=== PATIENT | male | born 2005 | race Asian ===

== ENCOUNTER 2024-06-27 16:58 | Emergency (ER) | payer BC, SELFPAY ==
[2024-06-27 17:29] VITALS: BP 136/90; PULSE 90; RESP 16; TEMP 37.3; O2SAT 98; BMI 18.7
--- NOTE | 2024-06-27 18:21 | ED_ITS ---
HPI - General Adult General Date Seen: 06/27/24 Chief complaint: Allergic Reaction Stated complaint: Withdrawal symptoms from previous meds Time Seen by Provider: 06/27/24 18:06 History of Present Illness HPI narrative: Patient is a 19-year-old [employer] student, male to female transgender, here with side effects related to stopping mirtazapine. She says that she stop the drug on advice of her regular doctor a few days ago and since then has had sensory problems, feels like things are very loud and bright, has had difficulty sleeping. Denies an increase in depression or anxiety, denies any suicidality or thoughts of self-harm. She apparently is supposed to start taking trazodone for sleep but does not have a prescription yet, thinks it might arrive tomorrow. She has an appointment on Friday with a doctor through [employer], and has an appointment with psychiatrist in a few weeks. Originally from [place], says that family is supportive and aware of what is going on. Related Data Home Medications ?Medication ?Instructions ?Recorded ?Confirmed aripiprazole 2 mg tablet (Abilify) 2 mg PO DAILY 06/27/24 06/27/24 estridil 8 mg PO BID 06/27/24 06/27/24 progesterone micronized 200 mg PO DAILY 06/27/24 06/27/24 spirolactone 100 mg PO BID 06/27/24 06/27/24 trazodone 50 mg tablet 50 mg PO QHS PRN 06/27/24 06/27/24 Allergies Allergy/AdvReac Type Severity Reaction Status Date / Time Milk Containing Products Allergy Mild NVD Verified 06/27/24 17:41 (Dairy) Exam Narrative: Exam Narrative: Vital signs reviewed In general, alert, well groomed college student Head: Normocephalic, atraumatic. Eyes: Pupils are equal and reactive. Heart: Regular rate and rhythm. Lungs: Clear. Neurologic: She is alert, conversant, moves all extremities equally. Affect: Flat, minimal eye contact. Const: Vital Signs, click to edit/add: Vital Signs - 24 hr 06/27/24 17:29 Temperature 99.2 F Pulse Rate [Pulse Oximeter] 90 Respiratory Rate 16 Blood Pressure [Ri ght Upper Arm] 136/90 H Pulse Oximetry 98 Oxygen Delivery Me thod Room Air Course Course ED Course: Patient presents with symptoms of withdrawal from her tabs a Pean. Reviewed with her that while and pleasant these symptoms are not dangerous and will resolve with time. Not aware of anything specifically that we can use to help, brought up the possibility of a taper but she is not interested in that. Sounds like she has good outpatient support. She does feel overwhelmed with school and thinks that would be helpful to have a note to have a little time off, so that will be provided. I am giving a dose of trazodone here so that maybe she can go home and get some sleep. She will start taking that tomorrow as planned. Outpatient follow-up as outlined in the HPI, return any time for significant worsening. At this time, no indication to suggest and need for inpatient treatment. Vital Signs Vital signs: Initial Vital Signs Temperature 99.2 F 06/27/24 17:29 Temperature Source Temporal Artery Scan 06/27/24 17:29 Pulse Rate 90 06/27/24 17:29 Respiratory Rate 16 06/27/24 17:29 Blood Pressure 136/90 H 06/27/24 17:29 Blood Pressure Mean 105 06/27/24 17:29 Pulse Oximetry 98 06/27/24 17:29 Oxygen Delivery Method Room Air 06/27/24 17:29 Vital Signs Temperature 99.2 F 06/27/24 17:29 Pulse Rate 90 06/27/24 17:29 Respiratory Rate 16 06/27/24 17:29 Blood Pressure 136/90 H 06/27/24 17:29 Pulse Oximetry 98 06/27/24 17:29 Oxygen Delivery Method Room Air 06/27/24 17:29 Temperature 99.2 F 06/27/24 17:29 Pulse Rate 90 06/27/24 17:29 Respiratory Rate 16 06/27/24 17:29 Blood Pressure 136/90 H 06/27/24 17:29 Pulse Oximetry 98 06/27/24 17:29 Oxygen Delivery Method Room Air 06/27/24 17:29 Medications Administered Medications: Discontinued Medications Generic Name Dose Route Start Last Admin Trade Name Freq PRN Reason Stop Dose Admin Trazodone HCl 50 mg 06/27/24 18:21 06/27/24 18:48 Trazodone Hcl 50 Mg Tablet PO 06/27/24 18:22 50 mg ONCE ONE Administration Discharge Plan Discharge Clinical Impression: Medication withdrawal Patient Disposition: Home, Self-Care Condition: Stable Additional Instructions: You should feel better with time, but I can not predict exactly how long this will take. Use the trazodone as prescribed by your regular doctor. Make sure to keep follow-up appointments. Return to the ER at any time if you do not feel safe at home. Prescriptions: No Action estridil 8 mg PO BID Patient Comments: 2 tab (4mg) progesterone micronized 200 mg PO DAILY spirolactone 100 mg PO BID aripiprazole [Abilify] 2 mg tablet 2 mg PO DAILY trazodone 50 mg tablet 50 mg PO QHS PRN Stand Alone Forms: Tangled Info Instructions
[2024-06-27] MEDS: TRAZODONE HCL 50 MG TABLET PO (18:48)
--- OUTSIDE RECORDS SUMMARY | 2024-06-27 19:01 | XMS_ITS | Clinical Summary ---
[facility] Organization [facility] Address [address] [place] [address] Care Team Providers Care Circuit Judge Name Role Phone Unavailable Primary Care Provider Unavailabl e Source Comments You are receiving this document as you are listed as the primary care provider,follow-up provider, or the patient has been referred to you for consultation.This is in compliance with the Medicare and[facility] EHR Incentive Program,which states Providers who transition their patient to another setting of careor provider of care or refers their patient to another provider of care shouldprovide summary care record for each transition of care or referral. [facility] Allergies No known active allergies Medications ALBUTEROL SULFATE IN Inhale 1-2 Puffs every 6 hours as needed. Active ARIPiprazole (ABILIFY) 2 MG tabletIndicatio ns:Anxiety and depression (HRC) Take 1 Tablet (2 mg) by mouth daily. 90 Tablet 3 4 Active estradiol 2 MG tabletIndicatio ns:Gender dysphoria,Hormo ne replacement therapy (HRT) Take 1 Tablet (2 mg) by mouth daily. 90 Tablet 3 4 Active progesterone (PROMETRIUM) 200 MG capsuleIndicati ons:Gender dysphoria,Hormo ne replacement therapy (HRT) Take 1 Capsule (200 mg) by mouth daily. 90 Capsule 3 4 Active spironolactone (ALDACTONE) 100 MG tabletIndicatio ns:Gender dysphoria,Hormo ne replacement therapy (HRT) Take 1 Tablet (100 mg) by mouth daily. 90 Tablet 3 4 Active traZODone (DESYREL) 50 MG tabletIndicatio ns:Anxiety (HRC),Sleep trouble,Depress ion, unspecified depression type Take 1 Tablet (50 mg) by mouth daily at bedtime. 90 Tablet 3 5 Active mirtazapine (REMERON) 30 MG tabletIndicatio ns:Anxiety and depression (HRC),Insomnia, unspecified type Take 1 Tablet (30 mg) by mouth daily at bedtime. 90 Tablet 3 4 025 Discontinued Active Problems Problem Noted Date Diagnosed Date Anxiety 01/14/2024 Depression, unspecified 01/14/2024 History of stress fracture 09/03/2023 Overview (09/03/2023): Left cuboid stress fracture July 2019, visualized on MRI Gender dysphoria 08/05/2022 Vitamin D deficiency 06/12/2022 Encounters Date Type Department Care Team Description 06/24/2024 10:00 AM TAPE SEWER Telemedicine [address] [address] Nehal Chua PA-C Anxiety (HRC) (Primary Dx); Sleep trouble; Depression, unspecified depression type 06/14/2024 3:35 PM TAPE SEWER E-Visit [address] [address] Nehal Chua PA-C Chief Comp: Medication Questions 04/07/2024 E-Visit Neurology at [address] [address] Mychart, Generic Provider 04/06/2024 1:15 PM TAPE SEWER Procedure Visit [facility] EEG/EMG [address] [place] [id number] from Last 3 Months Immunizations Immunization Administration Dates Next Due 9vHPV (Gardasil 9) 04/11/2017,09/27/2016 DTaP 01/13/2010, 6,2004,2004,2004 [id number] 04/24/2009 HepA, Unspecified Formulation 06/29/2007, 007 HepB, Unspecified Formulation 01/23/2005, 005,2004 Hib (PedvaxHIB) 10/31/2005, 5,2004,2004 IPV (Polio) 07/13/2009, 5,2004,2004 Influenza IIV4 (Quadrivalent ) 0.5mL (21365) 02/19/2022,03/26/2021,02/16/2020,2018,03/06/2018,04/11/2017 Influenza, Unspecified Formulation 04/11/2016, MCV4 (Menactra) 12/07/2015 MCV4 Menveo 2m.+ (two vial) 03/26/2021 MMR 07/06/2008,10/31/2005 Pfizer Monovalent 12+ Purple Top 2021,05/0 10/2020,08/24/2020 Pneumococcal 7, PED 05/01/2005, 5,2004,2004 Tdap 12/07/2015 Varicella 07/13/2009,10/31/2005 Family History Medical History Relation Name Comments Asthma Father Diabetes, Type II Paternal Grandfather Relation Name Status Comments Father Paternal Grandfather Social History Tobacco Use Types Packs/Day Years Used Date Smoking Tobacco: Never Smokeless Tobacco: Never Tobacco Cessation:Counseling Given: Not Answered Alcohol Use Standard Drinks/Week Comments Never 0 (1 standard drink = 0.6 oz pur e alcohol) PHQ-2 Answer Date Recorded PHQ-2 Score 3 01/14/2024 Financial Resource Strain Answer Date R ecorded Is it hard for you to pay fo r the very basics like food, housing, medical care or heating? No 08/30/2023 Food Insecurity Answer Date Recorded Does your food run out before you have the money to buy more? No 08/30/2023 Transportation Needs Answer Date Record ed Does a lack of transportatio n keep you from your medical appointments or from getting your medications? No 024 Comments Unknown Sex and Gender Information Value Date Recorded Sex Assigned at Not on file Legal Sex Female 5:44 PM CDT Gender Identity Not on file Sexual Orientation Not on file Last Filed Vital Signs Vital Sign Reading Time Taken Comments Blood Pressure 119/62 02/19/2024 2:32 PM CDT Pulse 69 02/19/2024 2:32 PM CDT Temperature - - Respiratory Rate - - Oxygen Saturation - - Inhaled Oxygen Concentration - - Weight 59.9 kg (132 lb) 02/19/2024 2:32 PM CDT weight with shoes Height 178 cm (5' 10.08) 09/03/2023 2: 35 PM CDT Body Mass Index 18.9 09/03/2023 2:35 PM CDT Plan of Treatment Upcoming Encounters Date Type Department Care Team (Late st Contact Info) Description 07/30/2024 1:00 PM CDT Telemedicine [facility] Psychiatry [address] [place] [address] Nova Schultz MD [address] [place], [place] [id number] Health Maintenance Due Date Last Done Comments Chlamydia 2004 Hep C Screening (Preventive Services) 2004 MenB Immunization Discussion 2004 HIV Screening (Preventive Services) 2020 COVID-19 Vaccine ( season) 2024 2021, 09/14/2020, 08/24/2020 Influenza (#1) 2024 02/19/2022, 03/12, 02/16/2020, Additional history exists Adult Preventive Visit 09/02/2024 09/03/2023 DTaP/Tdap/Td (7 - Tdap) 12/06/2025 12/07/19 16, 01/13/2010, 10/31/2005, Additional history exists Zoster/Shingles (1 of 2) 2054 HepB Completed 01/23/2005, 06/13, 2004 Pneumococcal Aged Out 05/01/2005, 08/11, 2004, Additional history exists No longer eligible based on patient's age to complete this topic Hib Completed 10/31/2005, 12/2004, 2004, Additional history exists HepA Completed 06/29/2007, 05/15/2006 IPV (Polio) Completed 07/13/2009, 04/12, 2004, Additional history exists Varicella Completed 07/13/2009, 10/31/2005 HPV Vaccine Completed 04/11/2017, 09/27/2016 MCV4 Completed 03/26/2021, 12/07/2015 Procedures Procedure Name Priority Date/Time Associated Diagnosis Comments EEG REPORT Routine 04/06/2024 1:15 PM TAPE SEWER Altered awareness, transient from Last 3 Months Results * EEG REPORT [[id number]] (04/06/2024 1:15 PM TAPE SEWER) Narrative EXTERNAL RESULTS - 04/06/2024 1:15 PM TAPE SEWER Rebecca Keith MD 04/06/2024 9:37 PM Electroencephalogram Procedure Note Indications: Transient altered awareness Ordering Physician: Triny Cosby APRN EEG#: [id number] Date: 04/06/2024 Start time: 13:12 End time: 14:21 Medications Outpatient Medications Prior to Visit Medication Sig Dispense Refill ALBUTEROL SULFATE IN Inhale 1-2 Puffs every 6 hours as needed. ARIPiprazole (ABILIFY) 2 MG tablet Take 1 Tablet (2 mg) by mouth daily. 90 Tablet 3 estradiol 2 MG tablet Take 1 Tablet (2 mg) by mouth daily. 90 Tablet 3 mirtazapine (REMERON) 30 MG tablet Take 1 Tablet (30 mg) by mouth daily at bedtime. 90 Tablet 3 progesterone (PROMETRIUM) 200 MG capsule Take 1 Capsule (200 mg) by mouth daily. 90 Capsule 3 spironolactone (ALDACTONE) 100 MG tablet Take 1 Tablet (100 mg) by mouth daily. 90 Tablet 3 No facility-administered medications prior to visit. Technical Description This is a > 1 hour EEG performed using 32-channel digital electroencephalographic recording equipment. International 10-20 electrode placement was used. The record was obtained with the patient awake and asleep. The record is of good technical quality for purposes of interpretation. Activation Procedures: photic stimulation . EEG Description Awake: An organized background was observed. Posterior parietal occipital activity during wakefulness consisted of 10 Hz medium voltage activity, which waxed and waned, and attenuated on eye opening bilaterally. Low voltage beta activity was observed with an anterior > posterior gradient. Sleep: With drowsiness, there was attenuation of the posterior dominant rhythm. As the patient entered into light sleep, vertex waves and symmetrical spindles were noted. K complexes were noted in sleep. Result of Activation Procedures: Hyperventilation: N/A. Photic Stimulation: No photic driving response is noted. Interictal: No interictal epileptiform discharges are recorded. Ictal: No electrographic seizures are recorded. EKG: regular rhythm EEG Interpretation Normal awake and sleep EEG. Rebecca Gar MD us Triny Cosby YARN FINISHER, CARTON MAKER [employer] Final Re sult EXTERNAL RESULTS from Last 3 Months Insurance [facility] OUT OF STATE
--- OUTSIDE RECORDS SUMMARY | 2024-06-27 19:01 | XMS_ITS | Encounter Summary ---
Author Organization [facility] Address [address] [place] [address] Care Team Providers Care Aircraft Sales Representative Name Role Phone Unavailable Primary Care Provider Unavailabl e Reason for Visit * Reason Onset Date Comments Video Visit 06/24/2024 Encounter Details Date Type Department Care Team (Late st Contact Info) Description 06/24/2024 10:00 AM ASPHALT MIXING MACHINE OPERATOR Telemedicine [facility] [address] [place] [address] Nehal Chua PA-C [address] [place], [place] [phone] Anxiety (HRC) (Primary Dx); Sleep trouble; Depression, unspecified depression type Social History Tobacco Use Types Packs/Day Years Used Date Smoking Tobacco: Never Smokeless Tobacco: Never Alcohol Use Standard Drinks/Week Comments Never 0 [...] on file Sexual Orientation Not on file documented as of this encounter Progress Notes * Nehal Chua PA-C - 06/24/2024 10:00 AM CST Subjective: Today's visit with Antonia was conducted via telehealth (video) as it is the patient's preference and it is appropriate for the treatment being provided CC: discuss mirtazepine side effects Since being in college she will often not have a consistent bedtime. She feels like mirtazepine needs to be taken at the same time every night but does not always go to bed at a consistent time, thishas led to missed doses. When missing doses she will feel less mental clarity, trouble focusing in class, easily overwhelmed to sensory stimuli, increase anxiety. In general less motivation to do things but does report when not taking mirtazepine she has been going out more with friends. Does not sleep well if does not take meds. If misses meds, will feel 'unstable' within a few days of missing meds Mirtazepine was started to help with sleep. Taking abilify, progesterone, spironolactone and estradiol daily without forgetting. Has appt with Psychiatry, Dr. Schultz in July. Objective: There were no vitals taken for this visit. Pt appears well, no apparent distress noted, talks in full comfortable sentences. Assessment/Plan: Antonia was seen today for video visit. Diagnoses and all orders for this visit: Anxiety (HRC) Sleep trouble Depression, unspecified depression type - traZODone (DESYREL) 50 MG tablet; Take 1 Tablet (50 mg) by mouth daily at bedtime. Discussed treatment options, risks and benefits. Antonia would like to discontinue mirtazepine and try something else. After discussing options, she will trial Trazodone 50 mg qhs Continue other meds unchanged Will follow up with as scheduled on 07/30/24 and with me sooner if needed. Nehal Chua PA-C ALT MIXING MACHINE OPERATOR documented in this encounter Plan of Treatment Upcoming Encounters Date Type Department Care Team (Late st Contact Info) Description 07/30/2024 1:00 PM CDT Telemedicine [facility] Psychiatry [address] [place] [address] Nova Schultz MD [address] [facility] [address] documented as of this encounter Visit Diagnoses Diagnosis Anxiety (HRC)- Primary Anxiety state, unspecified Sleep trouble Sleep disturbance, unspecified Depression, unspecified depression type documented in this encounter
--- OUTSIDE RECORDS SUMMARY | 2024-06-27 19:01 | XMS_ITS | Encounter Summary ---
Author Organization [facility] Address [address] [place] [address] Care Team Providers Care Wheelman Name Role Phone Unavailable Primary Care Provider Unavailabl e Reason for Visit * Reason Comments Medication Questions Entered automatical ly based on patient selection in [place]. Encounter Details Date Type Department Care Team (Late st Contact Info) Description 06/14/2024 3:35 PM DESIGN PROJECT MANAGER E-Visit [facility] [address] [place] [address] Nehal Chau PA-C [address] [place] [address] Chief Comp: Medication Questions Social History Tobacco Use Types Packs/Day Years [...] on file documented as of this encounter Nursing Notes * Nissa Knox 06/17/2024 8:04 AM CST CA called and reached patient. Informed of provider message and scheduled 40- minute VV on 06/24/24. Patient declined in-person visit. Nissa Knox 06/17/2024, 8:07 AM GN PROJECT MANAGER * Eliana Cormier - 06/15/2024 8:32 AM CST X1 TCB to schedule an in office visit with Nehal, can use same day. Must be 40 mins Eliana Cormier 06/15/2024, 8:33 AM GN PROJECT MANAGER * Nehal Chua PA-C - 06/15/2024 8:28 AM CST Antonia should be seen in person. Ok to use same days but needs to be 40 min. Thank you. Nehal Chua PA-C 06/15/2024, 8:28 AM GN PROJECT MANAGER documented in this encounter Plan of Treatment Upcoming Encounters Date Type Department Care Team (Late st Contact Info) Description 07/30/2024 1:00 PM CDT Telemedicine [facility] Psychiatry [address] [place], [place] [phone] Nova Schultz MD [address] [place] [address] documented as of this encounter Visit Diagnoses Not on filedocumented in this encounter
[2024-06-27 19:15] VITALS: BP 125/80; PULSE 85; RESP 16; TEMP 37.3; O2SAT 98
== END 2024-06-27 19:15 | disposition home or self-care (01) ==
LOC: ED 18:59
PROVIDERS: Emergency Provider Emergency Medicine
DX: F19.939 Other psychoactive substance use, unspecified with withdrawal, unspecified (principal)
CPT/HCPCS: 99283; A9270

== ENCOUNTER 2024-08-25 23:37 | Emergency (ER) | payer BC, SELFPAY ==
--- OUTSIDE RECORDS SUMMARY | 2024-08-25 23:38 | XMS_ITS | Clinical Summary ---
Author Organization [facility] Address [address], [place] [address] Care Team Providers Care Landscape Contractor Name Role Phone Linda Leonardo MD Primary Care Provider [phone] Source Comments You are receiving this document as you are listed as the primary care provider,follow-up provider, or the patient has been referred to you for consultation.This is in compliance with the Medicare and[facility] EHR Incentive Program,which states Providers who transition their patient to another setting of careor provider of care or refers their patient to another provider of care shouldprovide summary care record for each transition of care or referral. [facility] Allerg[facility] No known active allergies Medications ALBUTEROL SULFATE IN Inhale 1-2 Puffs every 6 hours as needed. Active estradiol 2 MG tabletIndicatio ns:Gender dysphoria,Hormo ne replacement therapy (HRT) Take 1 Tablet (2 mg) by mouth daily. 90 Tablet 3 09/03/19 24 Active progesterone (PROMETRIUM) 200 MG capsuleIndicati ons:Gender dysphoria,Hormo ne replacement therapy (HRT) Take 1 Capsule (200 mg) by mouth daily. 90 Capsule 09/03/19 24 Active spironolactone (ALDACTONE) 100 MG tabletIndicatio ns:Gender dysphoria,Hormo ne replacement therapy (HRT) Take 1 Tablet (100 mg) by mouth daily. 90 Tablet 09/03/19 24 Active QUEtiapine (SEROQUEL) 25 MG tablet Take 1-2 Tablets (25-50 mg) by mouth at bedtime as needed. 60 Tablet 08/26/19 25 Active divalproex (DEPAKOTE ER) 500 MG 24 hour release tablet Take 2 Tablets (1,000 mg) by mouth daily at bedtime. 60 Tablet 08/26/19 25 Active escitalopram (LEXAPRO) 10 MG tablet 5 mg daily then inc to 10 mg daily after a week 30 Tablet 1 08/26/19 25 Active traZODone (DESYREL) 50 MG tabletIndicatio ns:Anxiety (HRC),Sleep trouble,Depress ion, unspecified depression type Take 2 Tablets (100 mg) by mouth daily at bedtime. 180 Tablet 3 07/08/19 25 025 Discontinued(In effective for condition) QUEtiapine (SEROQUEL) 25 MG tablet Take 1-2 Tablets (25-50 mg) by mouth at bedtime as needed (sleep). 60 Tablet 07/24/19 25 025 Discontinued ARIPiprazole (ABILIFY) 2 MG tabletIndicatio ns:Anxiety and depression (HRC) Take 0.5 Tablets (1 mg) by mouth daily. 07/24/19 25 025 Discontinued(In effective for condition) divalproex (DEPAKOTE ER) 500 MG 24 hour release tablet 1 tab HS for 1 wk then 1 tab BID thereafter. Take all at night if sedating. 60 Tablet 1 07/27/19 25 025 Discontinued QUEtiapine (SEROQUEL) 25 MG tablet TAKE 1 TO 2 TABLETS AT BEDTIME NEEDED FOR SLEEP 60 Tablet 08/21/19 25 025 Discontinued(*M ed change OR same med OR reorder, new dose/directions ) Active Problems Problem Noted Date Diagnosed Date Anxiety 01/14/2024 Depression, unspecified 01/14/2024 History of stress fracture 09/03/2023 Overview (09/03/2023): Left cuboid stress fracture July 2019, visualized on MRI Gender dysphoria 08/05/2022 Vitamin D deficiency 06/12/2022 Encounters Date Type Department Care Team Description 08/25/2024 10:30 AM CDT Telemedicine [facility] Psychiatry [address] [place] [address] Nova Schultz MD Bipolar II disorder (HRC) (Primary Dx); Anxiety (HRC); Gender dysphoria; Vitamin D deficiency (HRC) 08/20/2024 Refill [facility] Psychiatry [address] [place] [address] Nova Schultz MD Refill 08/16/2024 Refill [facility] Psychiatry [address] [place] [address] Nova Schultz MD Refill (ARIPiprazole (ABILIFY) 2 MG tablet) 08/10/2024 10:25 AM CDT E-Visit [facility] Psychiatry [address] [place] [address] Nova Schultz MD Chief Comp: Medication Questions 07/24/2024 2:35 PM CDT E-Visit [facility] Psychiatry [facility] [place] [address] Nova Schultz MD Chief Comp: Follow-up, NOS 07/23/2024 11:00 AM CDT Telemedicine [facility] Psychiatry [facility] [place] [address] Nova Schultz MD Bipolar II disorder (HRC) (Primary Dx); Depression, unspecified depression type; Anxiety (HRC); Gender dysphoria; Vitamin D deficiency (HRC); Encounter for long-term current use of medication; Anxiety and depression (HRC) 07/08/2024 11:00 AM LANDSCAPE NURSERYMAN E-Visit [address] [address] Nehal Chua PA-C Dx: Anxiety (HRC) 07/07/2024 5:20 PM LANDSCAPE NURSERYMAN E-Visit [address] [address] Linda Leonardo MD Dx: Anxiety and depression (HRC) (Primary Dx) 06/29/2024 2:30 PM LANDSCAPE NURSERYMAN Telemedicine [address] [address] Nehal Chua PA-C Anxiety (HRC) (Primary Dx); Depression, unspecified depression type; Sleep trouble; Medication side effects 06/28/2024 10:50 AM LANDSCAPE NURSERYMAN E-Visit [address] [address] Nehal Chua PA-C Chief Comp: Follow-up, NOS 06/24/2024 10:00 AM LANDSCAPE NURSERYMAN Telemedicine [address] [address] Nehal Chua PA-C Anxiety (HRC) (Primary Dx); Sleep trouble; Depression, unspecified depression type 06/14/2024 3:35 PM LANDSCAPE NURSERYMAN E-Visit [address] [address] Nehal Chua PA-C Chief Comp: Medication Questions from Last 3 Months Immunizations Immunization Administration Dates Next Due 9vHPV (Gardasil 9) 04/11/2017,09/27/2016 DTaP 01/13/2010, 6,2004,2004,2004 [id number] 04/24/2009 HepA, Unspecified Formulation 06/29/2007, 007 HepB, Unspecified Formulation 01/23/2005, 005,2004 Hib (PedvaxHIB) 10/31/2005, 5,2004,2004 IPV (Polio) 07/13/2009, 5,2004,2004 Influenza IIV4 (Quadrivalent ) 0.5mL (77633) 02/19/2022,03/26/2021,02/16/2020,2018,03/06/2018,04/11/2017 Influenza, Unspecified Formulation 04/11/2016, MCV4 (Menactra) [...] alcohol) PHQ-2 Answer Date Recorded PHQ-2 Score 4 07/23/2024 Financial Resource Strain Answer Date R ecorded [...] Care Team (Late st Contact Info) Description 10/07/2024 10:30 AM CDT Telemedicine [facility] Psychiatry [address] [place] [address] Nova Schultz MD [address] [place] [address] Health Maintenance Due Date Last Done Comments Chlamydia 2004 Hep C Screening (Preventive Services) 2004 MenB Immunization Discussion 2004 HIV Screening (Preventive Services) 2020 COVID-19 Vaccine ( season) 2024 2021, 09/14/2020, 08/24/2020 Influenza Vaccine (#1) 2024 , 03/26/2021, 02/16/2020, Additional history exists Adult Preventive Visit 09/02/2024 09/03/2023 DTaP/Tdap/Td Vaccine (7 - Tdap) 12/06/2025 12/07/2015, 01/13/2010, 10/31/2005, Additional history exists Zoster/Shingles Vaccine (1 of 2) 2054 HepB Vaccine Completed 01/23/2005, 06/13, 2004 Pneumococcal Vaccine Aged Out 05/01/2005, 2004, 2004, Additional history exists No longer eligible based on patient's age to complete this topic Hib Vaccine Completed 10/31/2005, 12/2004, 2004, Additional history exists HepA Vaccine Completed 06/29/2007, 05/15/2006 IPV (Polio) Vaccine Completed 07/13/2009, 05/01/2005, 2004, Additional history exists Varicella Vaccine Completed 07/13/2009, 10/31/2005 HPV Vaccine Completed 04/11/2017, 09/27/2016 MCV4 Vaccine Completed 03/26/2021, 12/07/2015 [place] [address] Care Teams Landscape Contractor Relationship Specialty Start Date End Date Linda Leonardo MD [address] [place] [address] PCP - General Family Practice 07/08/24
--- OUTSIDE RECORDS SUMMARY | 2024-08-25 23:38 | XMS_ITS | Encounter Summary ---
Author Organization [facility] Address [address] [address] Care Team Providers Care Regional Manager Name Role Phone Linda Leonardo MD Primary Care Provider [phone] Reason for Visit * Reason Onset Date Comments Refill 08/16/2024 ARIPiprazole (AB ILIFY) 2 MG tablet Encounter Details Date Type Department Care Team (Late st Contact Info) Description 08/16/2024 Refill [facility] Psychiatry [address] [facility] [place], [place] [id number] Nova Schultz MD [address] [place] [address] Refill (ARIPiprazole (ABILIFY) 2 MG tablet) Social History Tobacco Use Types Packs/Day Years [...] as of this encounter Nursing Notes * Nova Schultz MD - 08/16/2024 1:35 PM CDT This medication Abilify is being discontinued. Pt aware. * Mp Menjivarm - 08/16/2024 10:18 AM CDT ARIPiprazole (ABILIFY) 2 MG tablet Medication started: 11/09/2022 Last ordered by NOVA SCHULTZ: 07/23/2024 (24 days ago as No Print/No Fill on 07/23/2024 by NOVA SCHULTZ), Sig: take 0.5 tablets (1 mg) by mouth daily. (unchanged) -> Medication cannot be delegated. -> A qualifying visit was not found within the last 2 years. Last qualifying visit: None (A recent visit (in Family Practice with VJ GALLAGHER) was found) Next scheduled visit: None [facility] Embedded Refills, Reference: [id number], 08/16/2024 10:17:58 AM CDT, Pool: Refill Centralized Services - Primary Care ([id number]) documented in this encounter Plan of Treatment Upcoming Encounters Date Type Department Care Team (Late st Contact Info) Description 10/07/2024 10:30 AM CDT Telemedicine [facility] Psychiatry [address] [facility] [place] [address] Nova Schultz MD [address] [place] [address] documented as of this encounter Visit Diagnoses Diagnosis Anxiety and depression (HRC) Dysthymic disorder documented in this encounter Care Teams Regional Manager Relationship Specialty Start Date End Date Linda Leonardo MD [address] [place] [address] PCP - General Family Practice 07/08/24 documented as of this encounter
--- OUTSIDE RECORDS SUMMARY | 2024-08-25 23:38 | XMS_ITS | Encounter Summary ---
Author Organization [facility] Address [address] [address] Care Team Providers Care Radiotelegraph Operator Servicer Name Role Phone Linda Leonardo MD Primary Care Provider [phone] Encounter Details Date Type Department Care Team (Late Contact Info) Description 08/25/2024 10:30 AM CDT Telemedicine [facility] Psychiatry [address] [facility] [place], [place] [address] Nova Schultz MD [address] [place], [place] [address] Bipolar II disorder (HRC) (Primary Dx); Anxiety (HRC); Gender dysphoria; Vitamin D deficiency (HRC) Social History Tobacco Use Types Packs/Day Years [...] on file documented as of this encounter Plan of Treatment Upcoming Encounters Date Type Department Care Team (Late st Contact Info) Description 10/07/2024 10:30 AM CDT Telemedicine [facility] Psychiatry [address] [place] [address] Nova Schultz MD [address] [address] documented as of this encounter Visit Diagnoses Diagnosis Bipolar II disorder (HRC)- Primary Other bipolar disorders Anxiety (HRC) Anxiety state, unspecified Gender dysphoria Vitamin D deficiency (HRC) Unspecified vitamin D deficiency documented in this encounter Care Teams Radiotelegraph Operator Servicer Relationship Specialty Start Date End Date Linda Leonardo MD [address] [place] [address] PCP - General Family Practice 07/08/24 documented as of this encounter
[2024-08-25 23:39] VITALS: BP 120/86; PULSE 81; RESP 16; TEMP 36.1; O2SAT 98; BMI 18.7
--- OUTSIDE RECORDS SUMMARY | 2024-08-25 23:39 | XMS_ITS | Encounter Summary ---
Author Organization [facility] Address [address] [place] [address] Care Team Providers Care Shotblast Operator Name Role Phone Linda Leonardo MD Primary Care Provider [phone] Reason for Visit * Reason Comments Follow-up, NOS Entered automaticall y based on patient selection in [employer]. Encounter Details Date Type Department Care Team (Late st Contact Info) Description 07/24/2024 2:35 PM CDT E-Visit [facility] Psychiatry [address] [facility] [place], [place] [address] Nova Schultz MD [address] [place] [address] Chief Comp: Follow-up, NOS Social History Tobacco Use Types Packs/Day Years [...] Nursing Notes * Nova Schultz MD - 07/26/2024 7:13 PM CDT I changed the RX. Pls send lab orders to [facility] if they can do it there. Requested Prescriptions Signed Prescriptions Disp Refills divalproex (DEPAKOTE ER) 500 MG 24 hour release tablet 60 Tablet 1 Si tab HS for 1 wk then 1 tab BID thereafter. Take all at night if sedating. Authorizing Provider: NOVA SCHULTZ * Rosita Huerta RN - 07/26/2024 4:11 PM CDT Routed to to advise. * Olive Muse LPN - 07/26/2024 12:06 PM CDT I did it came back no PA needed. If that's the case of insurance not wanting to pay for 2 of the 250 MG vs. 500 MG I will probably need [place] to ask why 2 per day vs. 1 per day on a 24 hour drug. Thoughts? * Rosita Huerta RN - 07/26/2024 12:00 PM CDT Olive, can PA be done? Depakote ER 250 mg is ordered BID, not 500 mg daily. * Poli Smith - 07/26/2024 11:44 AM CDT Medication Change/Question/Concern What is your question or concern? Pt calling regarding the prescription issue with divalproex 250 mg tablets. Pt states she updated her address with the pharmacy and they stated that is not the issuewith dispensing the medication. Pt states that they are trying to dispense the medication as divalproex 500 mg tablets quantity: 30 tablets, instead of what is prescribed. They will need a callback to clarify on this medication order. Name of medication(s): Divalproex 250 mg tablets Is it okay to leave a detailed message on your voicemail? Yes We'd like to make sure we have an updated pharmacy on file. [facility] AT Portal to Registered [place] [phone] * Olive Muse LPN - 07/26/2024 10:52 AM CDT Closed Prior Authorization Portal Close reason: Prior Authorization not required for patient/medication Payer: [employer] arthur Note from payer: Closed Attempted to call pharmacy to inform them of this status and with address listed on patient's chartdoes not match what pharmacy [facility] AT Portal to [facility] [phone] has and we are unable to verify. Antonia will need to contact pharmacy and update them with information that we have on file in order to verifyany information. * Olive Muse LPN - 07/26/2024 9:20 AM CDT PA requested for Quantity Refills Start End divalproex (DEPAKOTE ER) 250 MG 24 hour release tablet 60 Tablet 0 07/23/2024 07/23/2025 Sig: Take 1 Tablet (250 mg) by mouth two times a day. Route: Oral * Rosita Huerta RN - 07/26/2024 8:44 AM CDT Olive, can you look into what pharmacy needs in order to fill depakote pls? Thank you. documented in this encounter Plan of Treatment Upcoming Encounters Date Type Department Care Team (Late st Contact Info) Description 10/07/2024 10:30 AM CDT Telemedicine [facility] Psychiatry [address] [place], [place] [address] Nova Schultz MD [address] [place] [address] documented as of this encounter Visit Diagnoses Not on filedocumented in this encounter Care Teams Shotblast Operator Relationship Specialty Start Date End Date Linda Leonardo MD [address] [place] [address] PCP - General Family Practice 07/08/24 documented as of this encounter
--- OUTSIDE RECORDS SUMMARY | 2024-08-25 23:39 | XMS_ITS | Encounter Summary ---
Author Organization [facility] Address [address], [place] [address] Care Team Providers Care Graphic Technician Name Role Phone Linda Leonardo MD Primary Care Provider [phone] Reason for Visit * Reason Comments Medication Questions Entered automatical ly based on patient selection in [employer]. Encounter Details Date Type Department Care Team (Late Contact Info) Description 08/10/2024 10:25 AM CDT E-Visit [facility] Psychiatry [address], [address] [place], [place] [id number] Nova Schultz MD [address] [place] [address] Chief Comp: Medication Questions Social History Tobacco [...] Encounters Date Type Department Care Team (Late Contact Info) Description 10/07/2024 10:30 AM CDT Telemedicine [facility] Psychiatry [address] [place] [address] Nova Schultz MD [address] [place] [address] documented as of this encounter Visit Diagnoses Not on filedocumented in this encounter Care Teams Graphic Technician Relationship Specialty Start Date End Date Linda Leonardo MD [address] [place] [address] PCP - General Family Practice 07/08/24 documented as of this encounter
--- OUTSIDE RECORDS SUMMARY | 2024-08-25 23:39 | XMS_ITS | Encounter Summary ---
Author Organization [facility] Address [address], [place] [address] Care Team Providers Care Corporate Safety Manager Name Role Phone Linda Leonardo MD Primary Care Provider [phone] Reason for Visit * Reason Comments Refill Encounter Details Date Type Department Care Team (Late st Contact Info) Description 08/20/2024 Refill [facility] Psychiatry [address] [facility] [place], [place] [id number] Nova Schultz MD [address] [place], [place] [id number] Refill Social History Tobacco Use Types Packs/Day Years [...] as of this encounter Nursing Notes * Rosita Huerta RN - 08/20/2024 9:51 AM CDT Refill completed per standing order. documented in this encounter Plan of Treatment Upcoming Encounters Date Type Department Care Team (Late st Contact Info) Description 10/07/2024 10:30 AM CDT Telemedicine [facility] Psychiatry [address] [facility] [address] [facility] [place] [address] Nova Schultz MD [address] [place], [place] [address] documented as of this encounter Visit Diagnoses Not on filedocumented in this encounter Care Teams Corporate Safety Manager Relationship Specialty Start Date End Date Linda Leonardo MD [address] [place] [address] PCP - General Family Practice 07/08/24 documented as of this encounter
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
--- NOTE | 2024-08-26 00:13 | ED.GENADULT ---
HPI - General Adult General Chief complaint: Nausea/Vomiting Stated complaint: vomiting, dehydration Time Seen by Provider: 08/25/24 23:52 Source: patient Mode of arrival: ambulatory Limitations: no limitations History of Present Illness HPI narrative: 19-year-old patient presents to the emergency department with 5 hours of vomiting. No abdominal pain, no fever, no diarrhea. No hematemesis. No trauma or injury. Did not try any interventions prior to coming to ED. Denies use of marijuana. No sick contacts, no pertinent travel. Reports that they have been unable to hold down any substance since the vomiting started. No vomiting observed in triage. No prior similar ED visits. No recent medication adjustments, no history of pancreatitis or significant alcohol use. Past medical history notable for treatment for gender affirming male to female therapy. Reports that home meds are Abilify, Seroquel, estrogen, progesterone and spironolactone therapy, Depakote. No prior abdominal surgeries. ROS notable for the upper GI symptoms only, otherwise denies times 12 systems. Related Data Home Medications ?Medication ?Instructions ?Recorded ?Confirmed aripiprazole 2 mg tablet (Abilify) 2 mg PO DAILY 06/27/24 06/27/24 estridil 8 mg PO BID 06/27/24 06/27/24 progesterone micronized 200 mg PO DAILY 06/27/24 06/27/24 spirolactone 100 mg PO BID 06/27/24 06/27/24 trazodone 50 mg tablet 50 mg PO QHS PRN 06/27/24 06/27/24 Allergies Allergy/AdvReac Type Severity Reaction Status Date / Time Milk Containing Products Allergy Mild NVD Verified 06/27/24 17:41 (Dairy) [facility] Social History Smoking Status: Never smoker Second hand tobacco smoke exposure: No How often do you have a drink containing alcohol: never AUDIT-C Alcohol total score: 0 Non-prescribed substance use: denies use service: No Exam Const: Vital Signs, click to edit/add: Vital Signs - 24 hr 08/25/24 23:39 Temperature 97.0 F L Pulse Rate [Left P ulse Oximeter] 81 Respiratory Rate 16 Blood Pressure [Ri ght Upper Arm] 120/86 Pulse Oximetry 98 Oxygen Delivery Me thod Room Air Documenting provider has reviewed patient's vital signs: yes Common normals: no apparent distress and alert General appearance: cooperative and well kempt HENMT: Common normals: normocephalic, moist oral mucous membranes and oropharynx normal Head and scalp: normocephalic Eye: Common normals: conjunctivae normal General eye: normal appearance of both eyes Conjunctiva: conjunctiva(e) normal Neck & C-Spine: Common normals: full ROM and no lymphadenopathy General: normal visual inspection Resp: Common normals: normal respiratory effort, no use of accessory muscles and clear to auscultation bilaterally Effort & inspection: able to speak in complete sentences Auscultation: clear to auscultation bilaterally Cardio: Common normals: regular rate, regular rhythm, S1 normal heart sound, S2 normal heart sound and no murmurs Rate: regular rate Rhythm: regular rhythm Heart sounds: S1 normal and S2 normal GI: Common normals: Normal to inspection, nondistended, normoactive bowel sounds present, soft to palpation, non-tender and no hepatosplenomegaly Palpation: soft and no hepatosplenomegaly : Common normals: no CVA tenderness Bladder/kidney exam: no CVA tenderness Back & Pelvis: Common normals: no CVA tenderness and thoracic and lumbar spine normal to inspection Extremity: Common normals: normal capillary refill General: normal exam except as noted Neuro: Common normals: moves all extremities Sensorium/orientation: alert Speech: speech normal Psych: Appearance: well kempt Attitude: engaged Activity/motor behavior: appropriate eye contact Attention/concentration: attention grossly intact Memory/cognition: memory grossly intact Insight: insight good Judgement: judgment good Skin: Common normals: no rashes or lesions noted General skin exam: no rashes or lesions noted Course Course ED Course: 19-year-old male with vomiting. No signs of dehydration, hypotension, tachycardia. Exam without significant suspicion for pancreatitis, peritonitis from any source, pyelonephritis, kidney stone or toxic ingestion. Recommended trial of oral Zofran, after 20 minutes a trial of oral rehydration. If this is successful, would recommend home with oral Zofran. Suspect viral gastroenteritis, alarm symptoms reviewed that would warrant further workup, patient agrees to trial of simple management 1st. Reevaluation(s) Reevaluation #1: There is an team reports to me that the trial of oral liquids went very well. Patient is feeling better. Red instructions were provided with typical gastroenteritis instructions, prescription for Zofran provided. Take another dose in 6 hours and then every-6-8 hours as needed. Alarm symptoms were provided in written instructions that would warrant return to the emergency department or re-evaluation. Vital Signs Vital signs: Initial Vital Signs Temperature 97.0 F L 08/25/24 23:39 Temperature Source Temporal Artery Scan 08/25/24 23:39 Pulse Rate 81 08/25/24 23:39 Pulse Rhythm Regular 08/25/24 23:39 Respiratory Rate 16 08/25/24 23:39 Blood Pressure 120/86 08/25/24 23:39 Blood Pressure Mean 97 08/25/24 23:39 Blood Pressure Position Sitting 08/25/24 23:39 Pulse Oximetry 98 08/25/24 23:39 Oxygen Delivery Method Room Air 08/25/24 23:39 Vital Signs Temperature 97.0 F L 08/25/24 23:39 Pulse Rate 81 08/25/24 23:39 Respiratory Rate 16 08/25/24 23:39 Blood Pressure 120/86 08/25/24 23:39 Pulse Oximetry 98 08/25/24 23:39 Oxygen Delivery Method Room Air 08/25/24 23:39 Temperature 97.0 F L 08/25/24 23:39 Pulse Rate 81 08/25/24 23:39 Respiratory Rate 16 08/25/24 23:39 Blood Pressure 120/86 08/25/24 23:39 Pulse Oximetry 98 08/25/24 23:39 Oxygen Delivery Method Room Air 08/25/24 23:39 Medications Administered Medications: Discontinued Medications Generic Name Dose Route Start Last Admin Trade Name Ppaito PRN Reason Stop Dose Admin Ondansetron HCl 4 mg 08/26/24 00:12 08/26/24 00:14 Ondansetron Odt 4 Mg Tab PO 08/26/24 00:13 4 mg ONCE ONE Administration Discharge Plan Discharge Clinical Impression: Gastroenteritis Patient Disposition: Home, Self-Care Condition: Improved Instructions: Gastroenteritis (DC) Additional Instructions: As discussed, your symptoms are likely caused by a virus. We referred to most of these family's of viruses lump together as the ?stomach flu?. It is characterized by 2-4 days of nausea and vomiting and often ends with loose stools or diarrhea. You have been given a medication called ondansetron, also known as Zofran. I would like few to take another dose at 6-8am, then again another 6-8 hours later. After that, you may take it if you continue to have symptoms in the same fashion. If you get diarrhea, it is okay to use [id number] Imodium. You should be using Tylenol 1000 mg every 6 hours and or ibuprofen 600 mg every 6 hours as needed for headache, body aches, low-grade fevers and general discomfort. Continue to drink lots of fluids. These episodes typically do not need to be evaluated in the emergency room unless there is severe abdominal pain, high fever, severe weakness or symptoms have persisted for more than 48 hours. Please return to the emergency department if you have large amounts of bloody vomit, persistently bloody stools, high fever or severe weakness. Prescriptions: No Action estridil 8 mg PO BID Patient Comments: 2 tab (4mg) progesterone micronized 200 mg PO DAILY spirolactone 100 mg PO BID aripiprazole [Abilify] 2 mg tablet 2 mg PO DAILY trazodone 50 mg tablet 50 mg PO QHS PRN Follow Up/Referrals: Provider,Not a Local [Primary Care Provider] - Stand Alone Forms: [employer] Info Instructions
[2024-08-26] MEDS: ONDANSETRON ODT 4 MG TAB PO (00:14)
--- OUTSIDE RECORDS SUMMARY | 2024-08-26 00:22 | XMS_ITS | Clinical Summary ---
Author Organization [facility] Address [address], [place] [address] Care Team Providers Care Implementation Manager Name Role Phone Linda Leonardo MD Primary Care Provider [phone] Source Comments You are receiving this document as you are listed as the primary care provider,follow-up provider, or the patient has been referred to you for consultation.This is in compliance with the Medicare and[facility] EHR Incentive Program,which states Providers who transition their patient to another setting of careor provider of care or refers their patient to another provider of care shouldprovide summary care record for each transition of care or referral. [facility] Allergies No known active allergies Medications ALBUTEROL [...] Team Description 08/25/2024 10:30 AM CDT Telemedicine [facility] Psychiatry [address] [place] [address] Nova Schultz MD Bipolar II disorder (HRC) (Primary Dx); Anxiety (HRC); Gender dysphoria; Vitamin D deficiency (HRC) 08/20/2024 Refill [facility] [address] [place] [address] Nova Schultz MD Refill 08/16/2024 Refill [facility] [address] [place] [address] Nova Schultz MD Refill (ARIPiprazole (ABILIFY) 2 MG tablet) 08/10/2024 10:25 AM CDT E-Visit [facility] Psychiatry [address] [place] [address] Nova Schultz MD Chief Comp: Medication Questions 07/24/2024 2:35 PM CDT E-Visit [facility] Psych[facility]ry [facility] [place] [address] Nova Schultz MD Chief Comp: Follow-up, NOS 07/23/2024 11:00 AM CDT Telemedicine [facility] Psych[facility] [place] [address] Nova Schultz MD Bipolar II disorder (HRC) (Primary Dx); Depression, unspecified depression type; Anxiety (HRC); Gender dysphoria; Vitamin D deficiency (HRC); Encounter for long-term current use of medication; Anxiety and depression (HRC) 07/08/2024 11:00 AM INTERNAL MEDICINE PHYSICIAN ASSISTANT E-Visit [address] [address] Nehal Chua PA-C Dx: Anxiety (HRC) 07/07/2024 5:20 PM INTERNAL MEDICINE PHYSICIAN ASSISTANT E-Visit [address] [address] Linda Leonardo MD Dx: Anxiety and depression (HRC) (Primary Dx) 06/29/2024 2:30 PM INTERNAL MEDICINE PHYSICIAN ASSISTANT Telemedicine [address] [address] Nehal Chua PA-C Anxiety (HRC) (Primary Dx); Depression, unspecified depression type; Sleep trouble; Medication side effects 06/28/2024 10:50 AM INTERNAL MEDICINE PHYSICIAN ASSISTANT E-Visit [address] [address] Nehal Chua PA-C Chief Comp: Follow-up, NOS 06/24/2024 10:00 AM INTERNAL MEDICINE PHYSICIAN ASSISTANT Telemedicine [address] [address] Nehal Chua PA-C Anxiety (HRC) (Primary Dx); Sleep trouble; Depression, unspecified depression type 06/14/2024 3:35 PM INTERNAL MEDICINE PHYSICIAN ASSISTANT E-Visit [address] [address] Nehal Chua PA-C Chief Comp: Medication Questions from Last 3 Months Immunizations Immunization Administration Dates Next Due 9vHPV (Gardasil 9) 04/11/2017,09/27/2016 DTaP 01/13/2010, 6,2004,2004,2004 [id number] 04/24/2009 HepA, Unspecified Formulation 06/29/2007, 007 HepB, Unspecified Formulation 01/23/2005, 005,2004 Hib (PedvaxHIB) 10/31/2005, 5,2004,2004 IPV (Polio) 07/13/2009, 5,2004,2004 Influenza IIV4 (Quadrivalent ) 0.5mL (07003) 02/19/2022,03/26/2021,02/16/2020,2018,03/06/2018,04/11/2017 Influenza, Unspecified Formulation 04/11/2016, MCV4 (Menactra) [...] Info) Description 10/07/2024 10:30 AM CDT Telemedicine [facility] Psychiatry [address] [place] [address] Nova Schultz MD [address] [place] [address] Health Maintenance Due Date Last Done Comments [...] 03/26/2021, 12/07/2015 Insurance BCBS OUT OF STATE Care Teams Implementation Manager Relationship Specialty Start Date End Date Linda Leonardo MD [address] [place] [address] PCP - General Family Practice 07/08/24
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
--- OUTSIDE RECORDS SUMMARY | 2024-08-26 00:23 | XMS_ITS | Encounter Summary ---
Author Organization [facility] Address [address] [place] [address] Care Team Providers Care Wink Cutter Operator Name Role Phone Linda Leonardo MD Primary Care Provider [phone] Reason for Visit * Reason Comments Follow-up, NOS Entered automaticall y based on patient selection in [employer]. Encounter Details Date Type Department Care Team (Late st Contact Info) Description 07/24/2024 2:35 PM CDT E-Visit [facility] Psychiatry [address] [facility] [address], [address] [place], [place] [address] Nova Schultz MD [address] [place] [address] Chief Comp: Follow-up, NOS Social History Tobacco [...] the RX. Pls send lab orders to [facility] if they can do it there. Requested [...] we have an [facility] pharmacy [facility] AT Portal to Registered [place] [phone] * Olive Muse LPN - 07/26/2024 10:52 AM CDT Closed Prior Authorization Portal Close reason: Prior Authorization not required for patient/medication Payer: [employer] Note from payer: Closed Attempted to call pharmacy to inform them of this status and with address listed on patient's chartdoes not match what pharmacy [facility] AT Portal to [facility] [phone] has and we are unable to verify. [...] Info) Description 10/07/2024 10:30 AM CDT Telemedicine [facility] Psychiatry [address] [place], [place] [address] Nova Schultz MD [address] [place] [address] documented as of this encounter Visit Diagnoses Not on filedocumented in this encounter Care Teams Wink Cutter Operator Relationship Specialty Start Date End Date Linda Leonardo MD [address] [place] [address] PCP - General Family Practice 07/08/24 documented as of this encounter
--- OUTSIDE RECORDS SUMMARY | 2024-08-26 00:23 | XMS_ITS | Encounter Summary ---
Author Organization [facility] Address [address] [address] Care Team Providers Care Senior Windows Administrator Name Role Phone Linda Leonardo MD Primary Care Provider [phone] Reason for Visit * Reason Comments Medication Questions Entered automatical ly based on patient selection in [email or web address]. Encounter Details Date Type Department Care Team (Late Contact Info) Description 08/10/2024 10:25 AM CDT E-Visit [facility] Psychiatry [address] [facility] [place], [place] [id number] Nova Schultz MD [address] [place] [address] Chief Comp: Medication Questions Social History Tobacco [...] Info) Description 10/07/2024 10:30 AM CDT Telemedicine [facility] Psychiatry [address] [place] [address] Nova Schultz MD [address] [place] [address] documented as of this encounter Visit Diagnoses Not on filedocumented in this encounter Care Teams Senior Windows Administrator Relationship Specialty Start Date End Date Linda Leonardo MD [address] [place] [address] PCP - General Family Practice 07/08/24 documented as of this encounter
--- OUTSIDE RECORDS SUMMARY | 2024-08-26 00:23 | XMS_ITS | Encounter Summary ---
Author Organization [facility] Address [address], [place] [address] Care Team Providers Care Burglar Alarm Operator Name Role Phone Linda Leonardo MD Primary Care Provider [phone] Reason for Visit * Reason Comments Refill Encounter Details Date Type Department Care Team (Late st Contact Info) Description 08/20/2024 Refill [facility] Psychiatry [address] [facility], [address] [place], [place] [id number] Nova Schultz MD [address] [place], [place] [id number] Refill Social History Tobacco Use Types Packs/Day [...] Info) Description 10/07/2024 10:30 AM CDT Telemedicine [facility] Psychiatry [address] [facility] [address] [place] [address] Nova Schultz MD [address] [place], [place] [address] documented as of this encounter Visit Diagnoses Not on filedocumented in this encounter Care Teams Burglar Alarm Operator Relationship Specialty Start Date End Date Linda Leonardo MD [address] [place] [address] PCP - General Family Practice 07/08/24 documented as of this encounter
--- OUTSIDE RECORDS SUMMARY | 2024-08-26 00:23 | XMS_ITS | Encounter Summary ---
Author Organization [facility] Address [address], [place] [address] Care Team Providers Care Repairer Screen Crusher Name Role Phone Linda Leonardo MD Primary Care Provider [phone] Encounter Details Date Type Department Care Team (Late Contact Info) Description 08/25/2024 10:[address] [facility] Psychiatry [address] [facility], [address] [place], [place] [address] Nova Schultz MD [address] [place], [place] [address] Bipolar II disorder (HRC) (Primary Dx); Anxiety [...] Info) Description 10/07/2024 10:[address] [facility] Psychiatry [address] [place] [address] Nova Schultz MD [address] [place] [address] documented as of this encounter Visit Diagnoses Diagnosis Bipolar II disorder (HRC)- Primary Other bipolar disorders Anxiety (HRC) Anxiety state, unspecified Gender dysphoria Vitamin D deficiency (HRC) Unspecified vitamin D deficiency documented in this encounter Care Teams Repairer Screen Crusher Relationship Specialty Start Date End Date Linda Leonardo MD [address] [place] [address] PCP - General Family Practice 07/08/24 documented as of this encounter
--- OUTSIDE RECORDS SUMMARY | 2024-08-26 00:23 | XMS_ITS | Encounter Summary ---
Author Organization [facility] Address [address], [place] [address] Care Team Providers Care Rapid Extractor Operator Name Role Phone Linda Leonardo MD Primary Care Provider [phone] Reason for Visit * Reason Onset Date Comments Refill 08/16/2024 ARIPiprazole (AB ILIFY) 2 MG tablet Encounter Details Date Type Department Care Team (Late st Contact Info) Description 08/16/2024 Refill [facility] Psychiatry [address] [facility], [address] [place], [place] [id number] Nova Schultz MD [address] [place] [address] Refill (ARIPiprazole (ABILIFY) 2 MG tablet) Social [...] GALLAGHER) was found) Next scheduled visit: None [facility] Embedded Refills, Reference: [id number], 08/16/2024 10:17:58 AM CDT, Pool: Refill Centralized Services - Primary Care ([id number]) documented in this encounter Plan of Treatment Upcoming Encounters Date Type Department Care Team (Late st Contact Info) Description 10/07/2024 10:30 AM CDT Telemedicine [facility] Psychiatry [address] [facility] [facility] [place] [address] Nova Schultz MD [address] [place] [address] documented as of this encounter Visit Diagnoses Diagnosis Anxiety and depression (HRC) Dysthymic disorder documented in this encounter Care Teams Rapid Extractor Operator Relationship Specialty Start Date End Date Linda Leonardo MD [address] [place] [address] PCP - General Family Practice 07/08/24 documented as of this encounter
== END 2024-08-26 00:57 | disposition home or self-care (01) ==
PROVIDERS: Emergency Provider Family Medicine
DX: K52.9 Noninfective gastroenteritis and colitis, unspecified (principal)
CPT/HCPCS: 99283; A9270